=== PATIENT | female | born 1945 | race African-American/Black ===

== ENCOUNTER 2017-08-22 16:04 | Observation (INO) ==
[2017-08-22 18:18] LABS: Basophils % 0.1 % (0.0-0.8); Hematocrit 33.3 VOL% (35.7-47.0); Immature Granulocytes % 0.8 %; Immature Granulocytes Absolute 0.09 #; Lymphocytes # 0.2 10*3/uL (1.4-4.0); Lymphocytes % 1.8 % (21.3-54.2); Mean Corpuscular Hemoglobin 28 PG (27-34); Mean Corpuscular Volume 84.3 FL (87-102); Mean Platelet Volume 12.8 FL (9.6-12.0); Monocytes # 0.2 10*3/uL (0.11-0.8); Monocytes % 1.9 % (1.7-12.7); NRBC # 0.02 10*3/uL; Neutrophils # 10.8 10*3/uL (1.4-7.4); Neutrophils % 95.4 % (38.7-73.9); Platelet Count 166 T/CUMM (130-400); Red Blood Count 3.95 MC/CUMM (3.8-5.5); White Blood Count 11.3 T/CUMM (4-12)
[2017-08-22 18:43] LABS: Lymphocytes 2 % (20-55); Platelet Estimate Normal; Segmented Neutrophils 96 % (50-85); Total Cells Counted 100
[2017-08-22 18:49] LABS: Alanine Aminotransferase 26 U/L (13-56); Alkaline Phosphatase 88 U/L (45-117); Aspartate Amino Transferase 27 U/L (0-37); Bilirubin,Total < 0.39 MG/DL (0.2-1.0); Blood Urea Nitrogen 119 MG/DL (7-18); Calcium 8.6 MG/DL (8.5-10.1); Glucose 242 MG/DL (74-106); Osmolality,Calculated 311.4 MOS/KG (273-304); Sodium 133 MMOL/L (136-145); Total Protein 8.1 G/DL (6.4-8.3)
[2017-08-22] MEDS ORDERED: CALCIUM CHLORIDE 1,000 MG/10 ML SYRINGE IV STA (19:06)
[2017-08-22] MEDS ORDERED: DOCUSATE SODIUM 100 MG CAPSULE PO PRN (19:30)
[2017-08-22] MEDS ORDERED: ONDANSETRON 4 MG/2 ML VIAL IV PRN (19:30)
[2017-08-22] MEDS ORDERED: ZALEPLON 5 MG CAPSULE PO PRN (19:30)
[2017-08-22] MEDS ORDERED: ACETAMINOPHEN 325 MG TABLET PO PRN (19:30)
[2017-08-22] MEDS ORDERED: traMADol 50 MG TABLET PO PRN (19:37)
[2017-08-22] MEDS ORDERED: CALCIUM CHLORIDE 1,000 MG/10 ML SYRINGE IV ONE (19:48)
[2017-08-22] MEDS ORDERED: GLUCAGON 1 MG VIAL IM PRN (19:53)
[2017-08-22] MEDS ORDERED: DEXTROSE 50% 25 GM/50 ML VIAL IV PRN (19:53)
[2017-08-22] MEDS ORDERED: SODIUM POLYSTYRENE SULFATE 15 GM/60 ML BOTTLE PO ONE (20:00)
[2017-08-22] MEDS: hydrALAZINE 25 MG TABLET PO SCH (21:47)
[2017-08-22] MEDS: CARVEDILOL 3.125 MG TABLET PO SCH (21:49)
[2017-08-22] MEDS: INSULIN REGULAR 100 UNIT/ML SUBCUT SCH (21:51)
[2017-08-22] MEDS ORDERED: hydrALAZINE 20 MG/1 ML VIAL IV ONE (23:30)
[2017-08-23] MEDS: LABETALOL 20 MG/4 ML SYRINGE IV PRN ×2 (01:10→04:47)
[2017-08-23 06:12] LABS: Basophils % 0.2 % (0.0-0.8); Hematocrit 29.4 VOL% (35.7-47.0); Hemoglobin 9.5 GM/DL (12.0-16.0); Immature Granulocytes % 0.5 %; Immature Granulocytes Absolute 0.06 #; Lymphocytes # 0.9 10*3/uL (1.4-4.0); Lymphocytes % 7.8 % (21.3-54.2); Mean Corpuscular HGB Conc 32.3 GM/DL (32-36); Mean Corpuscular Hemoglobin 27 PG (27-34); Mean Corpuscular Volume 84.2 FL (87-102); Mean Platelet Volume 12.4 FL (9.6-12.0); Monocytes # 1.3 10*3/uL (0.11-0.8); Monocytes % 11.2 % (1.7-12.7); NRBC # 0.03 10*3/uL; Neutrophils # 9.6 10*3/uL (1.4-7.4); Neutrophils % 80.3 % (38.7-73.9); Platelet Count 153 T/CUMM (130-400); Red Blood Count 3.49 MC/CUMM (3.8-5.5); Red Cell Distribution Width 18.8 % (9.3-17.3); White Blood Count 11.9 T/CUMM (4-12)
[2017-08-23 06:29] LABS: Calcium 8.8 MG/DL (8.5-10.1); Potassium 5.8 MMOL/L (3.5-5.1)
[2017-08-23] MEDS ORDERED: predniSONE 20 MG TABLET PO SCH (09:00)
[2017-08-23] MEDS ORDERED: FOLIC ACID 1 MG TABLET PO SCH (09:00)
[2017-08-23] MEDS: hydrALAZINE 25 MG TABLET PO SCH ×3 (09:46→21:03)
[2017-08-23] MEDS: CARVEDILOL 3.125 MG TABLET PO SCH ×2 (09:46→21:04)
[2017-08-23] MEDS: INSULIN REGULAR 100 UNIT/ML SUBCUT SCH ×4 (09:46→21:05)
[2017-08-23 10:56] LABS: Hepatitis A Ab IgM Quant 0.14 Index; Hepatitis A Ab IgM Result Negative (Negative); Hepatitis B Core IgM Quant 0.18 Index; Hepatitis B Core IgM Result Negative (Negative); Hepatitis B Surface Ag Quant < 0.10 Index; Hepatitis B Surface Ag Result Negative (Negative); Hepatitis C Virus Ab Quant > 11.00 Index; Hepatitis C Virus Ab Result Positive (Negative)
[2017-08-23] MEDS ORDERED: SODIUM POLYSTYRENE SULFATE 15 GM/60 ML BOTTLE PO ONE (11:39)
[2017-08-24 07:36] VITALS: BP 176/105
== END 2017-08-24 08:10 | disposition home or self-care (01) ==
LOC: N.EDINP 16:04 → N.ED 16:04 → N.2E 20:04
PROVIDERS: ADMIT Hospitalist; ATTEND Hospitalist